=== PATIENT | female | born 1940 | race Caucasian/White ===

== ENCOUNTER 2017-01-26 16:36 | Inpatient (IN) | payer MEDICARE ==
[2017-01-26 17:55] LABS: #Basophils 0.1 thou/uL (0.0-0.2); #Eosinphils 0.1 thou/uL (0.0-0.7); #Lymphocytes 3.1 thou/uL (1.20-3.40); #Monocytes 0.6 thou/uL (0.11-0.59); %Basophils 1.5 % (0.0-1.0); %Eosinophils 1.6 % (0.0-10.0); %Lymphocytes 38.9 % (21.0-51.0); %Monocytes 7.4 % (0.0-10.0); Hematocrit 43.1 % (36.0-47.0); Mean Platelet Volume 8.9 fL (7.4-10.4); Red Blood Cell (RBC) Count 4.56 mill/uL (4.20-5.40); White Blood Cell (WBC) Count 7.8 thou/uL (4.8-10.8)
--- NOTE | 2017-01-26 17:58 | RAD ---
PORTABLE CHEST: Date: 01/26/17 PROVIDED CLINICAL HISTORY: Palpitations. FINDINGS: Cardiac and mediastinal silhouette is within normal limits. No focal consolidation, pleural fluid, or pneumothorax apparent. Atherosclerosis involves the aortic arch. IMPRESSION: No evidence for an acute cardiopulmonary process. POS: GRAHAM
[2017-01-26 18:23] LABS: Troponin I 0.023 ng/mL (< 0.028)
[2017-01-26 18:38] LABS: ALT (SGPT) 23 U/L (8-55); AST (SGOT) 34 U/L (5-34); Alkaline Phosphatase 98 U/L (40-150); Anion Gap 17 mmol/L (10-20); BUN (Urea Nitrogen) 22 mg/dL (9.8-20.1); Bilirubin, Total 0.2 mg/dL (0.2-1.2); CK (CPK) 49 U/L (29-168); Calc. Creatinine Clearance 0 mL/min (70-130); Calcium 9.5 mg/dL (7.8-10.44); Carbon Dioxide 19 mmol/L (23-31); Chloride 104 mmol/L (98-107); Estimated GFR-MDRD 54; Globulin 3.9 g/dL (2.4-3.5); Lipase 18 U/L (8-78); Protein, Total 8.2 g/dL (6.0-8.3)
[2017-01-26] MEDS ORDERED: Diltiazem HCl 125 MG, Admixture Fee 1 EACH in Sodium Chloride 0.9% 100 ML IVPB SCH (21:00)
[2017-01-27] MEDS ORDERED: Acetaminophen 325 MG TAB PO PRN (00:01)
[2017-01-27] MEDS ORDERED: Metoprolol Tartrate 5 MG/5 ML VIAL ONE (03:46)
--- NOTE | 2017-01-27 04:08 | HP ---
DATE OF ADMISSION: 01/26/2017 ADMITTING PHYSICIAN: Dr. Hany Mooney. PRIMARY CARE PHYSICIAN: Dr. Lim. CHIEF COMPLAINT: Tachycardia. HISTORY OF PRESENT ILLNESS: The patient has a history of atrial fibrillation in the past. She was c onverted with cardiac ablation several years ago. She is a patient of Dr. Tracey. The patient noticed approximately last she began to have palpitations. Starting Thursday, it became worse. She does report fatigue and shortness of breath. She did have some diaphoresis as well. She denies feve r, chills, upper respiratory infection signs or symptoms. REVIEW OF SYSTEMS: The following complete review of systems was negative, unless otherwise mentioned in the HPI or below: Constitutional: Weight loss or gain, sense of well-being, ability to conduct usual activities, exerc ise tolerance. Skin/Breast: Rash, itching, changes in hair growth or loss, nail changes, breast lumps, tenderness, swelling, nipple discharge. Eyes: Vision, double vision, tearing, blind spots, pain. ENT/Mouth: Headaches (location, time of onset, duration, precipitating factors), vertigo, lightheade dness, injury. Vision, double vision, tearing, blind spots, pain, nose bleeding, colds, obstruction, discharge, dental difficulties, gingival bleeding, dentures, neck stiffness, pain, tenderness, masses in thyroid or other areas. Cardiovascular: Precordial pain, substernal distress, palpitations, syncope, dyspnea on exertion, or thopnea, nocturnal paroxysmal dyspnea, edema, cyanosis, hypertension, heart murmurs, varicosities, ph lebitis, claudication. Respiratory: Pain, shortness of breath, wheezing, stridor, cough, hemoptysis, fever or night sweats. Gastrointestinal: Poor appetite, dysphagia, indigestion, abdominal pain, heartburn, eructation, naus ea, vomiting, hematemesis, jaundice, constipation, or diarrhea, abnormal stools (nash-colored, tarry, bloody, greasy, foul smelling), flatulence, hemorrhoids, recent changes in bowel habits. Genitourinary: Urgency, frequency, dysuria, nocturia, hematuria, polyuria, oliguria, unusual (or matt nge in) color of urine, stones, hesitancy, change in size of stream, dribbling, acute retention or in continence, libido, potency. Musculoskeletal: Pain, swelling, redness or heat of muscles or joints, limitation, of motion, muscul ar weakness, atrophy, cramps. Neurologic/Psychiatric: Convulsions, paralyses, tremor, incoordination, paresthesias, difficulties w ith memory of speech, sensory or motor disturbances, or muscular coordination (ataxia, tremor), emoti onal problems, anxiety, depression, previous psychiatric care, unusual perceptions, hallucinations. Allergy/Immunologic: Skin rash, anemia, bleeding tendency, polydipsia, polyuria, intolerance to heat or cold. PAST MEDICAL HISTORY: Significant for cardiac history, atrial fibrillation and hypothyroidism. PAST SURGICAL HISTORY: Thyroidectomy, heart ablation. PSYCHIATRIC HISTORY: Denies previous psychiatric admissions. SOCIAL HISTORY: She drinks socially. Denies drug use. Denies smoking. Lives at home with her christianoi louise. FAMILY HISTORY: Reviewed and noncontributory. HOME MEDICATIONS: Include Synthroid 75 mcg q. day, losartan 100 mg one q. day, aspirin 81 mg every o ther day, magnesium, dose unknown. DRUG ALLERGIES: The patient has no confirmed drug allergies. PHYSICAL EXAMINATION: VITAL SIGNS: Vital statistics show a temperature of 98.7, blood pressure 146/93, pulse 139, respirat ions 18, satting 98% on room air. GENERAL: She is very pleasant, nontoxic, no acute distress. HEAD: Normocephalic, atraumatic. EYES: PERRL. Extraocular muscles are intact. NECK: Supple, full range of motion. No JVD. CHEST: No rhonchi, no wheezing. LUNGS: Clear to auscultation bilaterally. CARDIOVASCULAR: Sinus tachycardia. ABDOMEN: Nontender, nondistended. EXTREMITIES: No clubbing, cyanosis or edema. NEUROLOGIC: Cranial nerves II-XII are grossly intact. Alert and oriented x3. PSYCHIATRIC: Normal affect. LABORATORY DATA AND IMAGES: CK 49, CK-MB 2.4, troponin I 0.023. Chest x-ray, no evidence for acute cardiopulmonary process. CMP: Sodium 134, potassium 5.7, chloride 104, CO2 of 19, BUN 22, creatinin e 1.0, glucose 88, AST 34, ALT 23, lipase 18. CBC: White count 7.8, hemoglobin 14.4, hematocrit 43. 1, platelets 243. EKG shows sinus tachycardia, nonspecific ST changes. ASSESSMENT: 1. Sinus tachycardia. 2. Hyperkalemia. 3. Hypothyroidism. PLAN: We will admit the patient to telemetry. The patient started on Cardizem drip in the ED. Dr. Tracey was consulted telephonically. She instructed the emergency room physician to start Cardizem dri p. She will evaluate the patient tomorrow. We will administer Kayexalate to lower the patient's pot assium level. We will provide DVT prophylaxis with Lovenox.
[2017-01-27 04:54] LABS: Anion Gap 12 mmol/L (10-20); BUN (Urea Nitrogen) 15 mg/dL (9.8-20.1); Calc. Creatinine Clearance 0 mL/min (70-130); Calcium 9.2 mg/dL (7.8-10.44); Carbon Dioxide 22 mmol/L (23-31); Chloride 107 mmol/L (98-107); Estimated GFR-MDRD 67
[2017-01-27] MEDS ORDERED: Levothyroxine Sodium 75 MCG TAB PO SCH (06:00)
[2017-01-27] MEDS ORDERED: Digoxin 0.5 MG/2 ML AMP ONE (07:53)
[2017-01-27] MEDS ORDERED: Acetaminophen 325 MG TAB ONE (08:34)
[2017-01-27] MEDS ORDERED: Potassium Chloride 20 MEQ TAB PO SCH (09:00)
[2017-01-27] MEDS ORDERED: Furosemide 40 MG TAB PO SCH (09:00)
[2017-01-27] MEDS ORDERED: Lisinopril 2.5 MG TAB PO SCH (09:00)
[2017-01-27] MEDS ORDERED: Rivaroxaban 10 MG TAB PO SCH (09:00)
--- NOTE | 2017-01-27 18:56 | DIS ---
PRIMARY CARE PHYSICIAN: Mike Dueñas M.D. DIAGNOSES ON ADMISSION: 1. Sinus tachycardia. 2. Hyperkalemia. 3. Hypothyroidism. DIAGNOSES ON DISCHARGE: 1. Tachycardia, resolved. 2. Hyperkalemia spurious secondary to hemolysis recheck normal. 3. Hypothyroidism. CONSULTATIONS: Cardiology Dr. Tracey. SUMMARY OF HOSPITAL COURSE: This is a 76-year-old white female who had a pacemaker placed last week. She reported 2-3 days of fatigue, shortness of breath and palpitations and went into the Emergency Room, had a sinus tachycardia on her EKG. Dr. Tracey was consulted. The patient was put on a diltiaze m drip with resolution of her tachycardia. She was then converted over to p.o. diltiazem. Dr. Tracey to see her, after her admission, down in the emergency room and determined that she was now stable fo r discharge and she is being discharged home. DISCHARGE MANAGEMENT: Discharged home. Follow up with Dr. Tracey in next 3-4 weeks. She is also jaden g to have the [employer] people call the patient tomorrow about her pacemaker. ACTIVITIES: As tolerated. DIET: Healthy heart diet. MEDICATIONS: Diltiazem 240 mg daily. This medication was called by Dr. Tracey to the patient's Ybrain cy. The patient is to resume all of her home medications.
--- NOTE | 2017-01-28 06:14 | CON ---
DATE OF CONSULTATION: 01/26/2017. This patient was visited in the emergency room; she had not yet had a room, she was going to be admit garry to the observation, I believe, but she has been in the emergency room already 12 hours the last t bianca I have seen her. INDICATION FOR CONSULTATION: This is a 76-year-old female with a rapid ventricular response due to e ither atrial fibrillation or atrial flutter. We were asked to see her. She is a very pleasant lady who has had problems in the past with atrial fibrillation. She has undergone ablation of the atrial fibrillation, had been doing very well until just the last couple of days she noticed some episodes o f increasing heart rates and then yesterday, she developed the heart rate which was very rapid. She presented to her primary physician's office where the heart rate was anywhere between 150-180 accordi ng to the patient. She then was advised to go to the emergency room which she did. On arrival to [facility] emergency room, she continued to have what appeared to be sinus tachycardia or some SVT. She was g iven IV diltiazem and then later was given IV digoxin and then she eventually converted back to mavis l sinus rhythm and has remained stable since that time. She has had episodes in the past prior to he r ablation where she would have sudden onsets of atrial fibrillation and eventually would have sinus rhythm and this has plagued her for quite some time. Since she had the ablation, but had been doing very well until the last few days until just recently when she was having short episodes, but nothing until yesterday when she had sustained the tachycardia. She denied any chest pain or any significan t shortness of breath. PAST MEDICAL HISTORY: Significant for paroxysmal atrial fibrillation, history of mitral valve regurg itation and migraine. She has had C-sections, hysterectomy, thyroidectomy. She has had the pulmonar y vein isolation due to the atrial fibrillation. She has had a lipoma removed. She has also had a b ladder suspension. ALLERGIES: None. PRESENT MEDICATIONS: Prior to admission included Premarin, Synthroid, losartan, Advil, zolpidem, asp irin 81 mg a day, rizatriptan, vitamin B2, Zyrtec, magnesium, and nortriptyline. REVIEW OF SYSTEMS: Twelve point review of systems unremarkable except what was noted in the history of present illness. PHYSICAL EXAMINATION: GENERAL: Reveals a well-developed, well-nourished female who is in no acute distress. She is alert and oriented. VITAL SIGNS: Blood pressure 166/77, heart rate 78 and regular, she is in sinus rhythm. She is afebr ile. HEENT: Reveals the head to be normocephalic, atraumatic. Carotid pulses are present. There were no bruits. No JVD. The thyroid is not enlarged. Oral mucosa was pink and moist. CHEST: Clear. No rales, rhonchi, or wheezing. CARDIOVASCULAR: Exam reveals a regular rate and rhythm, normal S1, S2, no S3, S4. There were no sig nificant murmurs, heaves, thrills, bruits or rubs. ABDOMEN: Soft and nontender with positive bowel sounds. No organomegaly or masses noted. Femoral p ulses are present. EXTREMITIES: Showed no clubbing, cyanosis or edema. NEUROLOGIC: The patient is fully intact. Her laboratory data is unremarkable except for some mild h yponatremia. LABORATORY DATA: Remaining laboratory data is unremarkable. Her EKG shows sinus rhythm. IMPRESSION AND RECOMMENDATIONS: 1. Sudden onset of what appears to be supraventricular tachycardia, then at times appears to be sinu s tachycardia. There was some tracing that appeared to be almost like flutter with a heart rate of a lmost 150, but at this time, it is somewhat difficult to determine whether or not this is a truly flu tter or just SVT. We will ask the certified diabetes educator to see her and most likely, she will need to u ndergo an ablation of the SVT with a rapid rate with the onset and in the meantime, I will send her h ome on diltiazem 240 mg once a day. If she has any other problems, she is to return to the emergency room. I have discussed her case with the certified diabetes educator and they will see her in the next 1-2 days in the clinic as an outpatient. 2. History of hypertension. This is slightly elevated, but usually is under relatively good control . With the addition of the diltiazem, the blood pressure should be also under better control. Thank you very much for asking us to see this patient and will be continued continue to follow her in the clinic as an outpatient.
--- NOTE | 2017-02-21 20:53 | EKG ---
Test Reason : Blood Pressure : / mmHG Vent. Rate : 140 BPM Atrial Rate : 081 BPM P-R Int : 000 ms QRS Dur : 066 ms QT Int : 314 ms P-R-T Axes : 000 -11 -68 degrees QTc Int : 479 ms Supraventricular tachycardia Nonspecific ST and T wave abnormality Abnormal ECG Confirmed by STELLA TENORIO, GOLD ([id number]), city editor HENRRY RICHARDS ([id number]) on 02/21/2017 8:52:27 PM Referred By: Confirmed By:GOLD DOUGLAS MD
--- NOTE | 2017-02-21 20:53 | EKG ---
Test Reason : Blood Pressure : / mmHG Vent. Rate : 137 BPM Atrial Rate : 137 BPM P-R Int : 160 ms QRS Dur : 090 ms QT Int : 268 ms P-R-T Axes : 000 -11 -36 degrees QTc Int : 404 ms Sinus tachycardia Nonspecific ST abnormality Abnormal ECG Confirmed by STELLA TENORIO, GOLD ([id number]), advertising editor HENRRY RICHARDS ([id number]) on 02/21/2017 8:52:26 PM Referred By: Confirmed By:GOLD DOUGLAS MD
== END 2017-01-27 14:02 | disposition home or self-care (01) | DRG 310 ==
LOC: ERS 16:36 → ERHOLD 21:47
PROVIDERS: ADMIT Internal Medicine Addiction Medicine; ATTEND Internal Medicine Addiction Medicine
DX: I47.1 Supraventricular tachycardia (principal); E87.5 Hyperkalemia; I48.0 Paroxysmal atrial fibrillation; I34.0 Nonrheumatic mitral (valve) insufficiency; E03.9 Hypothyroidism, unspecified; G43.909 Migraine, unspecified, not intractable, without status migrainosus; I10 Essential (primary) hypertension; Z95.0 Presence of cardiac pacemaker; Z79.82 Long term (current) use of aspirin
CPT/HCPCS: 36415; 71010; 80048; 80053; 82553; 83690; 84484; 85025; 93005; 94760; 96361; 96365; 96366; 96375; 96376; J1160; J7050

== ENCOUNTER 2021-02-22 11:25 | Day surgery (SDC) | payer MEDICARE ==
[2021-02-22] MEDS ORDERED: Lidocaine 1% PF 5 ML VIAL ONE (12:35)
[2021-02-22] MEDS ORDERED: PROPOFOL 200 MG/20 ML VIAL ONE (12:35)
== END 2021-02-22 13:39 | disposition home or self-care (01) ==
LOC: SDC 11:25
PROVIDERS: ATTEND Internal Medicine Cardiovascular Disease
PROC: 5A2204Z Restoration of Cardiac Rhythm, Single (ICD-10-PCS; principal; 2021-02-22)
DX: I48.92 Unspecified atrial flutter (principal); I48.0 Paroxysmal atrial fibrillation; I10 Essential (primary) hypertension; I34.0 Nonrheumatic mitral (valve) insufficiency; G43.909 Migraine, unspecified, not intractable, without status migrainosus; E89.0 Postprocedural hypothyroidism; Z79.899 Other long term (current) drug therapy; Z88.5 Allergy status to narcotic agent
CPT/HCPCS: 92960; 93005; 93010; J2704

== ENCOUNTER 2022-04-03 15:21 | Outpatient (CLI) | payer MEDICARE ==
[2022-04-03 16:57] LABS: #Basophils 0.2 10x3/uL (0.0-0.2); #Eosinphils 0.2 10x3/uL (0.0-0.5); #Monocytes 0.8 10x3/uL (0.0-1.1); #Neutrophils 9.7 10x3/uL (1.5-8.4); %Basophils 1.2 % (0.0-2.0); %Eosinophils 1.6 % (0.0-6.0); %Lymphocytes 15.4 % (18.0-47.0); %Monocytes 6.3 % (0.0-10.0); Hemoglobin 13.2 g/dL (12.0-15.5); Mean Corpuscular HGB CONC 32.2 g/dL (32.0-36.0); Mean Corpuscular Hemoglobin 30.2 pg (27.0-33.0); Mean Corpuscular Volume 93.8 fl (81.6-98.3); Mean Platelet Volume 10.9 fl (7.4-10.4); Platelet Count 282 10x3/uL (150-450); RBC Distribution Width 14.5 % (11.5-14.5); Red Blood Cell (RBC) Count 4.37 10x6/uL (3.90-5.03); White Blood Cell (WBC) Count 12.9 10x3/uL (3.5-10.5)
[2022-04-03 17:03] LABS: INR-International Normal Ratio 0.9; PTT 29.3 sec (22.0-33.0); Prothrombin Time 10.2 sec (9.5-12.1)
[2022-04-03 17:25] LABS: Anion Gap 17 mmol/L (10-20); BUN (Urea Nitrogen) 29 mg/dL (9.8-20.1); Calc. Creatinine Clearance 0 mL/min (70-130); Calcium 9.2 mg/dL (7.8-10.44); Carbon Dioxide 19 mmol/L (23-31); Chloride 106 mmol/L (98-107); Estimated GFR 55; Glucose 89 mg/dL (83-110); Potassium 5.2 mmol/L (3.5-5.1); Sodium 137 mmol/L (136-145)
== END 2022-04-03 15:22 | disposition home or self-care (01) ==
LOC: LABBT 15:21
PROVIDERS: ATTEND Internal Medicine Cardiovascular Disease
DX: Z01.818 Encounter for other preprocedural examination (principal); I48.0 Paroxysmal atrial fibrillation
CPT/HCPCS: 80048; 85025; 85610; 85730; 93005; 93010

== ENCOUNTER 2022-04-04 09:49 | Day surgery (SDC) | payer MEDICARE ==
[2022-04-03 14:25] VITALS: BMI 25.6
[2022-04-04] MEDS ORDERED: PROPOFOL 200 MG/20 ML VIAL ONE (12:43)
== END 2022-04-04 14:30 | disposition home or self-care (01) ==
LOC: SDC 09:49
PROVIDERS: ATTEND Internal Medicine Cardiovascular Disease
PROC: B246ZZ4 Ultrasonography of Right and Left Heart, Transesophageal (ICD-10-PCS; principal; 2022-04-04)
PROC: 5A2204Z Restoration of Cardiac Rhythm, Single (ICD-10-PCS; 2022-04-04)
DX: I48.4 Atypical atrial flutter (principal); I48.0 Paroxysmal atrial fibrillation; I10 Essential (primary) hypertension; E78.5 Hyperlipidemia, unspecified; E03.9 Hypothyroidism, unspecified; M19.90 Unspecified osteoarthritis, unspecified site; I08.1 Rheumatic disorders of both mitral and tricuspid valves; Z79.01 Long term (current) use of anticoagulants; Z79.890 Hormone replacement therapy; Z79.899 Other long term (current) drug therapy; Z88.6 Allergy status to analgesic agent
CPT/HCPCS: 92960; 93005; 93010; 93312; J2704

== ENCOUNTER 2022-07-21 15:38 | Observation (INO) | payer MEDICARE ==
[2022-07-21 16:45] LABS: #Basophils 0.1 thou/uL (0.0-0.2); #Eosinphils 0.1 thou/uL (0.0-0.7); #Monocytes 0.7 thou/uL (0.11-0.59); #Neutrophils 3.5 thou/uL (1.40-6.50); %Basophils 1.7 % (0.0-1.0); %Eosinophils 1.4 % (0.0-10.0); %Monocytes 9.5 % (0.0-10.0); %Neutrophils 49.1 % (42.0-75.0); Hemoglobin 16.7 g/dL (12.0-16.0); Mean Corpuscular HGB CONC 33.7 g/dL (32.0-36.0); Mean Corpuscular Hemoglobin 29.9 pg (27.0-31.0); Mean Corpuscular Volume 88.6 fl (78.0-98.0); Mean Platelet Volume 10.6 fL (7.4-10.4); Platelet Count 264 10x3/uL (130-400); RBC Distribution Width 15.5 % (11.5-14.5); Red Blood Cell (RBC) Count 5.59 mill/uL (4.20-5.40); White Blood Cell (WBC) Count 7.2 10x3/uL (4.8-10.8)
[2022-07-21 17:02] LABS: ALT (SGPT) 20 U/L (8-55); AST (SGOT) 24 U/L (5-34); Albumin 4.2 g/dL (3.4-4.8); Alkaline Phosphatase 96 U/L (40-110); Anion Gap 17 mmol/L (10-20); BUN (Urea Nitrogen) 19 mg/dL (9.8-20.1); Bilirubin, Total 0.3 mg/dL (0.2-1.2); Calc. Creatinine Clearance 0 mL/min (70-130); Calcium 9.4 mg/dL (7.8-10.44); Carbon Dioxide 20 mmol/L (23-31); Chloride 103 mmol/L (98-107); Estimated GFR 66; Globulin 3.3 g/dL (2.4-3.5); Glucose 97 mg/dL (83-110); Lipase 14 U/L (8-78); Magnesium 2.1 mg/dL (1.6-2.6); Potassium 4.5 mmol/L (3.5-5.1); Protein, Total 7.5 g/dL (5.8-8.1); Sodium 135 mmol/L (136-145)
[2022-07-21] MEDS ORDERED: Diltiazem 125 MG/25 ML SDV ONE (17:38)
[2022-07-21] MEDS ORDERED: Acetaminophen 325 MG TAB PO PRN (18:00)
[2022-07-21] MEDS ORDERED: Ondansetron ODT 4 MG TAB PO PRN (18:00)
[2022-07-21] MEDS ORDERED: Ondansetron PF 4 MG/2 ML Vial IVP PRN (18:00)
[2022-07-21] MEDS ORDERED: Diltiazem 125 MG in Sodium Chloride 0.9% 100 ML IVPB SCH ×2 (19:15→21:30)
[2022-07-21 19:46] LABS: Magnesium 2.2 mg/dL (1.6-2.6)
[2022-07-21] MEDS ORDERED: Digoxin 0.5 MG/2 ML AMP ONE (21:45)
[2022-07-22 00:15] VITALS: BMI 25.0
[2022-07-22] MEDS ORDERED: Zolpidem Tartrate 5 MG TAB PO PRN (00:44)
[2022-07-22] MEDS ORDERED: Nortriptyline HCl 25 MG CAP PO PRN (00:44)
[2022-07-22] MEDS ORDERED: Amiodarone 450 MG in Dextrose 5% in Water 250 ML IVPB SCH (00:45)
[2022-07-22] MEDS ORDERED: Apixaban 2.5 MG TAB PO SCH ×2 (02:15→09:00)
[2022-07-22] MEDS ORDERED: Levothyroxine Sodium 75 MCG TAB PO SCH (06:00)
[2022-07-22 06:41] LABS: Bacteria/HPF None Seen HPF (None Seen); Bilirubin Negative (Negative); Blood, Urine Negative (Negative); CAUTI Indications for Culture Alt mental st,lethar; Clarity Clear (Clear); Glucose, Urine (Dipstick) Normal (Negative); Ketone, Urine Negative (Negative); Leukocyte Negative Leu/uL (Negative); Nitrite Negative (Negative); Protein, Urine (Dipstick) Negative (Neg-Trace); RBC/HPF 0-3 HPF (0-3); Specific Gravity, Urine 1.011 (1.002-1.036); Squamous Epithelial 0-3 HPF (0-3); Urobilinogen Normal mg/dL (Less than 2); WBC/HPF 0-3 HPF (0-3); pH, Urine 6.5 (5.0-9.0)
[2022-07-22 06:45] LABS: Urine Culture Reflex No No
[2022-07-22] MEDS ORDERED: PROPOFOL 200 MG/20 ML VIAL ONE (08:44)
[2022-07-22] MEDS ORDERED: Lidocaine 1% PF 5 ML VIAL ONE (08:44)
[2022-07-22 12:14] VITALS: BP 113/72; TEMP 97
== END 2022-07-22 12:55 | disposition home or self-care (01) ==
LOC: ERS 15:38 → 2NO 18:19
PROVIDERS: ADMIT Internal Medicine; ATTEND Family Medicine
DX: I48.92 Unspecified atrial flutter (principal); I48.91 Unspecified atrial fibrillation; I10 Essential (primary) hypertension; E03.9 Hypothyroidism, unspecified; Z79.890 Hormone replacement therapy; Z79.899 Other long term (current) drug therapy; Z79.01 Long term (current) use of anticoagulants; Z88.6 Allergy status to analgesic agent; Z90.89 Acquired absence of other organs
CPT/HCPCS: 36415; 71045; 80053; 81001; 83690; 83735; 83880; 84439; 84443; 84484; 85025; 92960; 93005; 96365; 96366; 96375; 96376; G0378; J0282; J1160; J2704; J7070

== ENCOUNTER 2022-09-12 10:30 | Inpatient (IN) | payer MEDICARE ==
[2022-09-12 11:13] VITALS: BMI 25.0
[2022-09-12 12:27] LABS: Bilirubin Neg (Negative); Blood, Urine Negative (Negative); Clarity Clear (Clear); Glucose, Urine (Dipstick) Normal (Negative); Ketone, Urine Negative (Negative); Leukocyte Negative (Negative); Nitrite Negative (Negative); Protein, Urine (Dipstick) Negative (Neg-Trace); Urobilinogen Normal mg/dL (Less than 2)
[2022-09-12 12:29] LABS: Hematocrit 41.9 % (34.9-44.5); Hemoglobin 13.8 g/dL (12.0-15.5); Mean Corpuscular HGB CONC 32.9 g/dL (32.0-36.0); Mean Corpuscular Hemoglobin 30.5 pg (27.0-33.0); Mean Corpuscular Volume 92.5 fl (81.6-98.3); Mean Platelet Volume 10.5 fl (7.4-10.4); Platelet Count 264 10x3/uL (150-450); RBC Distribution Width 14.5 % (11.5-14.5); Red Blood Cell (RBC) Count 4.53 10x6/uL (3.90-5.03); White Blood Cell (WBC) Count 6.5 10x3/uL (3.5-10.5)
[2022-09-12 12:50] LABS: INR-International Normal Ratio 0.9; PTT 31.1 sec (22.0-33.0); Prothrombin Time 10.2 sec (9.5-12.1)
[2022-09-12 12:58] LABS: ALT (SGPT) 22 U/L (8-55); Albumin 4.4 g/dL (3.4-4.8); Alkaline Phosphatase 110 U/L (40-110); Anion Gap 16 mmol/L (10-20); BUN (Urea Nitrogen) 20 mg/dL (9.8-20.1); Bilirubin, Total 0.4 mg/dL (0.2-1.2); Calc. Creatinine Clearance 0 mL/min (70-130); Calcium 9.5 mg/dL (7.8-10.44); Carbon Dioxide 20 mmol/L (23-31); Chloride 106 mmol/L (98-107); Estimated GFR 64; Globulin 3.4 g/dL (2.4-3.5); Glucose 94 mg/dL (83-110); Potassium 5.2 mmol/L (3.5-5.1); Protein, Total 7.8 g/dL (5.8-8.1); Sodium 137 mmol/L (136-145)
[2022-09-12 13:10] LABS: AST (SGOT) 33 U/L (5-34)
[2022-09-17] MEDS ORDERED: Protamine Sulfate 50 MG/5 ML VIAL ONE (06:56)
[2022-09-17] MEDS ORDERED: CEFAZOLIN 1 GM VIAL ONE (06:56)
[2022-09-17] MEDS ORDERED: Heparin 10,000 UNITS/ 10 ML VIAL ONE (06:56)
[2022-09-17] MEDS ORDERED: fentaNYL 50 mcg/mL 1 mL Vial ONE (07:01)
[2022-09-17] MEDS ORDERED: Propofol 1,000 MG/100 ML VIAL IV ONE (07:26)
[2022-09-17] MEDS ORDERED: PHENYLEPHRINE-NS 100 MCG/ML 10 ML SYRINGE ONE (08:23)
[2022-09-17] MEDS ORDERED: PROPOFOL 200 MG/20 ML VIAL ONE (08:23)
[2022-09-17] MEDS ORDERED: Lidocaine 1% (PF) 30 ML VIAL ONE (08:38)
[2022-09-17] MEDS ORDERED: Iopamidol 370 76% 100 ML VIAL ONE (09:28)
== END 2022-09-17 15:52 | disposition home or self-care (01) | DRG 274 ==
LOC: SURG A 09-17 06:18
PROVIDERS: ADMIT Internal Medicine Cardiovascular Disease; ATTEND Internal Medicine Cardiovascular Disease
PROC: 02L73DK Occlusion of Left Atrial Appendage with Intraluminal Device, Percutaneous Approach (ICD-10-PCS; principal; 2022-09-17)
DX: I48.91 Unspecified atrial fibrillation (principal); Z00.6 Encounter for examination for normal comparison and control in clinical research program; E03.9 Hypothyroidism, unspecified; Z98.890 Other specified postprocedural states; Z90.710 Acquired absence of both cervix and uterus; Z90.89 Acquired absence of other organs
CPT/HCPCS: 33340; 80053; 81003; 85027; 85347; 85610; 85730; 86850; 86900; 86901; C1759; C1760; C1894; J0690; J1644; J2001; J2704; J2720; J3010; Q9967